=== PATIENT | male | born 2000 | race African-American/Black ===

== ENCOUNTER 2018-01-03 13:40 | Emergency (ER) | payer OTHER ==
[~2018-01-03] VITALS: Ht 182.9 cm; Wt 100.0 kg
[2018-01-03 16:03] LABS: CLARITY URINE CLEAR (CLEAR); COLOR URINE DARK YELLOW (YELLOW); KETONES URINE TRACE (NEGATIVE); LEUKOCYTE ESTERASE URINE 1+ (NEGATIVE); NITRITE URINE NEGATIVE (NEGATIVE); OCCULT BLOOD URINE NEGATIVE (NEGATIVE); PROTEIN URINE NEGATIVE (NEGATIVE); SPECIFIC GRAVITY URINE 1.033 (1.005-1.030); UROBILINOGEN URINE 0.2 E.U./dL (0.2-1.0)
[2018-01-03] MEDS ORDERED: AZITHROMYCIN 500 MG TABLET PO ONE (16:30)
[2018-01-03] MEDS ORDERED: CEFTRIAXONE SODIUM 250 MG/VIAL IM ONE (16:30)
[2018-01-03 16:45] VITALS: BP 138/82
[2018-01-06 04:18] LABS: CHLAMYDIA TRACHOMATIS NAA Negative (Negative); NEISSERIA GONORRHOEAE NAA Negative (Negative)
== END 2018-01-03 16:58 | disposition home or self-care (01) ==
LOC: ER 14:26
DX: N30.00 Acute cystitis without hematuria (principal); F12.10 Cannabis abuse, uncomplicated; F15.10 Other stimulant abuse, uncomplicated
CPT/HCPCS: 76870; 81003; 87491; 87591; 93976; 96372; 99285; J0696; Z7610

== ENCOUNTER 2018-01-13 08:22 | Emergency (ER) | payer OTHER ==
[~2018-01-13] VITALS: Ht 182.9 cm; Wt 82.0 kg
[2018-01-13 08:55] LABS: CLARITY URINE CLEAR (CLEAR); COLOR URINE YELLOW (YELLOW); KETONES URINE NEGATIVE (NEGATIVE); LEUKOCYTE ESTERASE URINE NEGATIVE (NEGATIVE); NITRITE URINE NEGATIVE (NEGATIVE); OCCULT BLOOD URINE NEGATIVE (NEGATIVE); PROTEIN URINE NEGATIVE (NEGATIVE)
[2018-01-13 09:00] VITALS: BP 137/74
== END 2018-01-13 09:02 | disposition home or self-care (01) ==
LOC: ER 08:22
DX: R21 Rash and other nonspecific skin eruption (principal); F12.10 Cannabis abuse, uncomplicated; F15.10 Other stimulant abuse, uncomplicated
CPT/HCPCS: 81003; 99283

== ENCOUNTER 2018-12-23 15:55 | Emergency (ER) | payer OTHER ==
[~2018-12-23] VITALS: Ht 177.8 cm; Wt 85.0 kg
[2018-12-23] MEDS ORDERED: SODIUM CHLORIDE 0.9% 1,000 ML IV ONE (15:59)
[2018-12-23 16:45] LABS: BASOPHILS % 1.2 % (0.0-2.0); EOSINOPHILS % 1.5 % (0.0-5.0); HEMATOCRIT. 46.6 % (42.0-52.0); HEMOGLOBIN. 15.7 g/dL (14.0-18.0); LYMPHOCYTES % 21.8 % (20.0-50.0); MEAN CORPUSCULAR HEMOGLOBIN 30.7 pg (28.0-32.0); MEAN CORPUSCULAR VOLUME 90.9 fL (80.0-94.0); MONOCYTES % 9.9 % (2.0-8.0); NEUTROPHILS % 65.6 % (40.0-76.0); PLATELET 221 x1000/uL (130-400); RED BLOOD CELL COUNT 5.13 mill/uL (4.7-6.1); RED CELL DISTRIBUTION WIDTH 13.2 % (11.6-14.6)
[2018-12-23 16:53] LABS: CHLORIDE 106 mEq/L (98-107)
[2018-12-23 16:54] LABS: PARTIAL THROMBOPLASTIN TIME 26.9 sec (23.4-31.0); PROTHROMBIN TIME 10.2 sec (9.1-11.1)
[2018-12-23] MEDS ORDERED: IBUPROFEN 600MG TABLET PO ONE (18:00)
[2018-12-23 18:28] VITALS: BP 125/79
== END 2018-12-23 18:21 | disposition home or self-care (01) ==
LOC: ER 15:56
DX: S71.102A Unspecified open wound, left thigh, initial encounter (principal); F12.10 Cannabis abuse, uncomplicated; F15.10 Other stimulant abuse, uncomplicated; Z87.828 Personal history of other (healed) physical injury and trauma; W32.0XXA Accidental handgun discharge, initial encounter; Y93.89 Activity, other specified; Y92.89 Other specified places as the place of occurrence of the external cause
CPT/HCPCS: 36415; 73552; 73560; 80053; 85025; 85610; 85730; 86850; 86900; 86901; 99284; J7030; Z7610

== ENCOUNTER 2019-07-04 09:03 | Emergency (ER) | payer MEDICAID, OTHER ==
[~2019-07-04] VITALS: Ht 182.9 cm; Wt 91.0 kg
[2019-07-04 09:37] VITALS: BP 118/58
== END 2019-07-04 09:49 | disposition left against medical advice (07) ==
LOC: ER 09:03
DX: Z53.21 Procedure and treatment not carried out due to patient leaving prior to being seen by health care provider (principal)

== ENCOUNTER 2019-12-14 18:18 | Emergency (ER) | payer MEDICAID ==
[~2019-12-14] VITALS: Ht 172.7 cm; Wt 112.0 kg
[2019-12-14] MEDS ORDERED: CEFTRIAXONE SODIUM 250 MG/VIAL IM ONE (19:45)
[2019-12-14] MEDS ORDERED: AZITHROMYCIN 500 MG TABLET PO SCH (19:45)
[2019-12-14 20:14] LABS: CLARITY URINE CLEAR (CLEAR); COLOR URINE YELLOW (YELLOW); KETONES URINE NEGATIVE (NEGATIVE); LEUKOCYTE ESTERASE URINE 1+ (NEGATIVE); NITRITE URINE NEGATIVE (NEGATIVE); OCCULT BLOOD URINE NEGATIVE (NEGATIVE); PROTEIN URINE NEGATIVE (NEGATIVE); SPECIFIC GRAVITY URINE 1.021 (1.005-1.030); UROBILINOGEN URINE 0.2 E.U./dL (0.2-1.0)
[2019-12-14] MEDS ORDERED: LIDOCAINE HCL 1% 20ML VIAL (Pyxis) INJ INFIL ONE (20:30)
[2019-12-14 20:38] VITALS: BP 147/74
== END 2019-12-14 20:41 | disposition home or self-care (01) ==
LOC: ER 18:18
DX: A64 Unspecified sexually transmitted disease (principal); A54.9 Gonococcal infection, unspecified; A74.9 Chlamydial infection, unspecified; F12.10 Cannabis abuse, uncomplicated; B99.8 Other infectious disease
CPT/HCPCS: 81003; 87086; 96372; 99283; J0696

== ENCOUNTER 2020-03-13 20:42 | Emergency (ER) | payer MEDICAID ==
[~2020-03-13] VITALS: Ht 177.8 cm; Wt 107.0 kg
[2020-03-13] MEDS ORDERED: AZITHROMYCIN 500 MG TABLET PO ONE (22:30)
[2020-03-13] MEDS ORDERED: CEFTRIAXONE SODIUM 250 MG/VIAL IM ONE (22:30)
[2020-03-13] MEDS ORDERED: IBUPROFEN 600MG TABLET PO ONE (22:30)
[2020-03-13 23:04] VITALS: BP 140/70
== END 2020-03-13 23:05 | disposition home or self-care (01) ==
LOC: ER 20:42
DX: Z20.2 Contact with and (suspected) exposure to infections with a predominantly sexual mode of transmission (principal); F12.10 Cannabis abuse, uncomplicated; Z87.828 Personal history of other (healed) physical injury and trauma
CPT/HCPCS: 96372; 99283; J0696

== ENCOUNTER 2021-10-15 12:51 | Emergency (ER) | payer MEDICAID ==
[~2021-10-15] VITALS: Ht 172.7 cm; Wt 95.0 kg
[2021-10-15 12:54] VITALS: BP 112/59
[2021-10-15] MEDS ORDERED: IBUPROFEN 600MG TABLET PO ONE (13:00)
== END 2021-10-15 17:42 | disposition left against medical advice (07) ==
LOC: ER 12:51
DX: R07.89 Other chest pain (principal)
CPT/HCPCS: 71045; 93005; 99283